=== PATIENT | male | born 1995 | race Caucasian/White ===

== ENCOUNTER → 2024-05-12 | Outpatient (CLI) | payer OTHER | LOC: M OUTALCOH 08:22 | PROVIDERS: ATTEND Psychiatry & Neurology Psychiatry | DX: F10.10 Alcohol abuse, uncomplicated (principal); F17.200 Nicotine dependence, unspecified, uncomplicated ==

== ENCOUNTER 2024-06-07 08:00 | Outpatient (RCR) | payer OTHER | END 2024-06-10 | LOC: M OUTALCOH 08:00 | PROVIDERS: ATTEND Psychiatry & Neurology Psychiatry | DX: F10.10 Alcohol abuse, uncomplicated (principal); F17.200 Nicotine dependence, unspecified, uncomplicated ==

== ENCOUNTER → 2024-07-11 | Outpatient (RCR) | payer OTHER | LOC: M OUTALCOH 06-13 16:00 | PROVIDERS: ATTEND Psychiatry & Neurology Psychiatry | DX: F10.10 Alcohol abuse, uncomplicated (principal); F17.200 Nicotine dependence, unspecified, uncomplicated ==

== ENCOUNTER 2024-07-19 07:58 | Outpatient (RCR) | payer OTHER | END 2024-08-11 | LOC: M OUTALCOH 07:58 | PROVIDERS: ATTEND Psychiatry & Neurology Psychiatry | DX: F10.10 Alcohol abuse, uncomplicated (principal); F17.200 Nicotine dependence, unspecified, uncomplicated ==